=== PATIENT | male | born 1960 | race Caucasian/White ===

== ENCOUNTER → 2017-05-25 | Outpatient (CLI) | payer OTHER ==
--- NOTE | ~2017-05-25 | MR43 ---
[facility] A Service of [facility] & [facility] RADIOLOGY TEXT RESULTS PATIENT: MAISHA DUMONT LOCATION: [facility] : 56 UNIT #: [id number] AGE: [address]: Gorge Salazar MD SEX: M ORDER DR: [id number] [place] [id number] O MR#: [id number] Acc #: [id number] NAME: MAISHA DUMONT : 1960 SEX: M STUDY DATE/TIME: 05/25/2017 16:11 UNIT: [facility] ROOM: STUDY DESCRIPTION: MR Elbow Wo Contrast Rt Attending Physician: Gorge Salazar M.D. Referring Physician: Gorge Salazar M.D. Ordering Physician: Gorge Salazar M.D. Primary Care Physician: Fransisco Malin M.D. MRI CENTER REPORT This report is preliminary unless electronic signature is present. EXAM MRI right elbow without contrast 05/25/2017. COMPARISON Right elbow radiographs, 05/11/2017. HISTORY Order states pain and swelling, right elbow. History sheet states right elbow pain for 2 weeks with some swelling and decreased range of motion. 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 No related surgery. 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 There is secondary marked laxity of the lateral ulnar collateral ligament as it courses towards its insertion on the supinator crest of the ulna. The annular ligament appears to remain intact. There is also complete detachment of the common extensor tendon with 40-mm distal retraction to the level of the radiocapitellar joint line. There is marked associated lateral soft tissue edema. The extensor carpi radialis longus tendon origin more superiorly is intact. There is a tiny subarticular bone contusion of the ulnar side of the radial head. There is no radial fracture. There is a small bone contusion of the coronoid process of the ulna without a definite fracture. The ulnar collateral ligament and common flexor-pronator complex medially are normal. [facility] A Service of [facility] & [facility] RADIOLOGY TEXT RESULTS PATIENT: MAISHA DUMONT LOCATION: [facility] : 56 UNIT #: [id number] AGE: [address]: Gorge Salazar MD SEX: M ORDER DR: The ulnar nerve and cubital fossa are unremarkable. The biceps, brachialis, and triceps tendons are normal. There is no marrow lesion. No chondral/osteochondral lesion or loose body is identified. IMPRESSION 1. Recent-appearing detachment of the conjoined origin of the radial collateral ligament proper and the lateral ulnar collateral ligament with retraction and associated soft tissue edema detailed above. 2. Detachment of the common extensor tendon at the lateral condyle with distal retraction and associated soft tissue edema. 3. Small bone contusion without fracture of the coronoid process of the ulna. 4. Tiny radial head subarticular bone contusion without fracture. 5. Joint effusion. 6. Not mentioned above is a small associated avulsion fracture probably at the common extensor tendon origin radiographically. Dictated by... Brianna Rodriguez M.D. THIS IS AN ELECTRONICALLY VERIFIED REPORT Brianna Rodriguez M.D. at 05/27/2017 7:52 AM JUAN/sarika TD: 05/26/2017 13:10 JOB #: [id number] MRI CENTER REPORT Page 1 of 1
== END | disposition home or self-care (01) ==
LOC: SMRI 14:53
DX: M25.521 Pain in right elbow (principal); M79.89 Other specified soft tissue disorders; M25.431 Effusion, right wrist; S62.101A Fracture of unspecified carpal bone, right wrist, initial encounter for closed fracture; S50.11XA Contusion of right forearm, initial encounter
CPT/HCPCS: 73221